=== PATIENT | female | born 1995 | race Caucasian/White ===

== ENCOUNTER 2021-10-07 09:09 | Emergency (ER) | payer SELFPAY ==
[2021-10-07] MEDS ORDERED: ACETAMINOPHEN 325 MG TABLET PO STA (10:52)
[2021-10-07] MEDS ORDERED: IBUPROFEN 600 MG TABLET PO STA (10:52)
--- NOTE | 2021-10-07 11:36 | XRAY Report ---
PROCEDURE: Shoulder 3 View LT INDICATIONS: fell onto left shoulder TECHNIQUE: 3 views of the shoulder were acquired. COMPARISON: None. FINDINGS: Bones: No fractures or dislocations. No suspicious bony lesions. Visualized ribs appear intact. Soft tissues: No suspicious soft tissue calcifications. IMPRESSION: No acute finding. Reviewed by: Olivier Baumann MD on 10/07/2021 10:34 AM [facility] Approved by: Olivier Baumann MD on 10/07/2021 10:34 AM [facility] Station ID: [id number]
--- NOTE | 2021-10-07 11:49 | ED Physician Documentation ---
PD HPI UPPER EXT INJURY - Stated complaint Stated Complaint: LT SHOULDER PX - Chief complaint Chief Complaint: Ext Problem - History obtained from History obtained from: Patient - History of Present Illness Location: Left, Shoulder Type of injury: Fall (She states she tripped and fell and struck her left shoulder. She was carrying her [id number] child in her arms so did not allow for protection of her fall. No obvious injury to her child. Denies hitting her head.) Where injury occurred: Home Timing - onset: Today Timing - details: Abrupt onset Worsened by: Moving, Palpating (at the AC area) Associated symptoms: No: Weakness, Numbness Contributing factors: No: Anticoagulated Similar symptoms before: Has not had sx before Review of Systems Skin: denies: Abrasion (s), Laceration (s) Neurologic: denies: Focal weakness, Numbness PD PAST MEDICAL HISTORY - Past Medical History Past Medical History: Yes Cardiovascular: None Respiratory: None Neuro: None Endocrine/Autoimmune: None GI: None HYDROGEOLOGIST: None : None HEENT: None Psych: None Musculoskeletal: None Derm: None - Past Surgical History Past Surgical History: Yes /HYDROGEOLOGIST: section - Allergies Allergies/Adverse Reactions: Allergies Allergy/AdvReac Type Severity Reaction Status Date / Time No Known Drug Allergies Allergy Verified 10/07/21 09:33 - Social History Does the pt smoke?: No Smoking Status: Never smoker Does the pt drink ETOH?: No Does the pt have substance abuse?: No - Immunizations Immunizations are current?: Yes - POLST Patient has POLST: No PD ED PE NORMAL - Vitals Vital signs reviewed: Yes - General General: Alert and oriented X 3, No acute distress, Well developed/nourished - HEENT HEENT: Atraumatic - Neck Neck: Supple, no meningeal sign, No bony TTP - Derm Derm: Normal color, Warm and dry - Extremities Extremities: Other (Tenderness without deformity at the left AC joint area. No step-off. No obvious dislocation on range of motion of the shoulder.) - Neuro Neuro: No motor deficit, No sensory deficit Results - Vitals Vitals: Vital Signs - 24 hr 10/07/21 10/07/21 09:29 12:11 Temperature 36.3 C L 36.9 C Heart Rate 66 70 Respiratory 16 15 Rate Blood Pressure 102/66 136/69 H O2 Saturation 98 99 Oxygen O2 Source Room air - Rads (name of study) left shoulder Radiology: Prelim report reviewed (normal), See rad report PD MEDICAL DECISION MAKING - ED course Complexity details: reviewed results, considered differential (She is tender at the AC joint without any step-off or deformity. Normal x-ray. Presume a low- grade strain. Does not sound rotator cuff.), d/w patient Departure - Departure Disposition: 01 Home, Self Care Clinical Impression: Fall from slip, trip, or stumble Qualifiers: Encounter type: initial encounter Qualified Code(s): W01.0XXA - Fall on same level from slipping, tripping and stumbling without subsequent striking against object, initial encounter Shoulder contusion Qualifiers: Encounter type: initial encounter Laterality: left Qualified Code(s): S40.012A - Contusion of left shoulder, initial encounter Strain of acromioclavicular joint Qualifiers: Encounter type: initial encounter Laterality: left Qualified Code(s): S46.912A - Strain of unspecified muscle, fascia and tendon at shoulder and upper arm level, left arm, initial encounter Condition: Stable Record reviewed to determine appropriate education?: Yes Instructions: ED Sprain AC Joint Follow-Up: ALBINA JORGENSEN ARNP [Primary Care Provider] - Comments: X-ray appears normal without any dislocation/separation, fracture. There may be some bruising of the shoulder although clinically it does sound likely that you have some stretching of the ligaments that hold the collarbone to the shoulder. This typically is treated with limited activity based on comfort. In particular no overhead reaching or heavy lifting on that side. Some Tylenol or ibuprofen as needed for pains and progress activity as tolerated. It may take a week or 2 for it to fully healed up. Discharge Date/Time: 10/07/21 12:12
[2021-10-07 12:12] VITALS: BP 136/69
== END 2021-10-07 12:12 | disposition home or self-care (01) ==
LOC: ED 09:09
DX: S40.012A Contusion of left shoulder, initial encounter (principal); W01.0XXA Fall on same level from slipping, tripping and stumbling without subsequent striking against object, initial encounter; Y92.009 Unspecified place in unspecified non-institutional (private) residence as the place of occurrence of the external cause
CPT/HCPCS: 73030; 99282; 99283; A9270

== ENCOUNTER 2023-06-08 08:55 | Outpatient (CLI) | payer MEDICAID ==
--- NOTE | 2023-06-08 22:02 | Ultrasound Report ---
PROCEDURE: Pelvic w/Transvaginal INDICATIONS: PELVIC PAIN TECHNIQUE: Real-time scanning was performed of the pelvic organs, with image documentation. Additional endovagi nal scanning was necessary due to incomplete visualization of the adnexal and endometrial structures by transabdominal scanning. COMPARISON: None. FINDINGS: Uterus: Uterus is anteverted and normal in size at 8.5 x 4.2 x 4.5 cm. The myometrium is homogeneou s. . No discrete uterine fibroids The endometrium measures 5 mm in combined thickness. Intrauterine device is seen, the tip is approximately 0.4 cm from superior end of endometrium. No endometrial mas s or fluid is seen. Ovaries: The right ovary measures 2.3 x 1.6 x 1.4 cm, with a calculated ovarian volume of 2.5 cc. T he left ovary measures 2.1 x 2 x 1.7 cm, with a calculated ovarian volume of 3.8 cc. The ovaries hav e a normal sonographic appearance. Less than 12 follicles can be seen in each ovary. No adnexal mas ses are seen. No cystic lesions measuring greater than 3 cm. Other: No pathologic free abdominal or pelvic fluid. IMPRESSION: 1. Intrauterine device is in its normal central endometrial location. No endometrial mass or fluid. N o discrete uterine fibroids. 2. Normal-appearing bilateral ovaries. Reviewed by: Feroz Conrad MD on 06/08/2023 10:00 PM PDT Approved by: Feroz Conrad MD on 06/08/2023 10:00 PM PDT Station ID: [id number]
== END 2023-06-08 08:56 | disposition home or self-care (01) ==
LOC: DI 08:55
PROVIDERS: ATTEND Nurse Practitioner Obstetrics & Gynecology
DX: R10.2 Pelvic and perineal pain (principal); N93.9 Abnormal uterine and vaginal bleeding, unspecified; Z97.5 Presence of (intrauterine) contraceptive device